=== PATIENT | female | born 1965 | race Caucasian/White ===

== ENCOUNTER 2017-08-02 18:32 | Emergency (ER) | payer OTHER ==
[~2017-08-02] VITALS: Ht 170.2 cm; Wt 83.9 kg
--- NOTE | 2017-08-02 20:35 | Diagnostic Imaging Report ---
EXAMINATION: FOREARM RIGHT 2 VIEW, WRIST COMPLETE RIGHT 08/02/2017 6:45 PM COMPARISON: None INDICATION: Fall, pain, edema DISCUSSION: 3 views of the right wrist (PA, lateral, and oblique) 2 views of the right forearm (AP and lateral) No fracture or dislocation. Tiny well-corticated ossicle at the base of the first metacarpal may be related to old trauma. Degenerative changes at the basilar joint of the thumb Soft tissues are unremarkable IMPRESSION: Tiny well-corticated ossicle at the base of the right thumb may be related to old trauma. Correlate with site of patient tenderness. Otherwise no acute radiographic abnormality of the right wrist or forearm. Benedicto Wang MD Signed by: Dr. Benedicto Wang M.D. on 08/02/2017 8:31 PM
== END 2017-08-02 20:54 | disposition home or self-care (01) ==
LOC: ER 18:32
DX: S63.521A Sprain of radiocarpal joint of right wrist, initial encounter (principal); W01.0XXA Fall on same level from slipping, tripping and stumbling without subsequent striking against object, initial encounter; Y93.01 Activity, walking, marching and hiking; Y92.830 Public park as the place of occurrence of the external cause; E03.9 Hypothyroidism, unspecified
CPT/HCPCS: 99283

== ENCOUNTER 2021-04-10 20:01 | Inpatient (IN) | payer OTHER ==
[~2021-04-10] VITALS: Ht 170.2 cm; Wt 99.8 kg
[2021-04-10] MEDS ORDERED: SODIUM CHLORIDE 0.9% 1000ML 1,000 ML IV STA (20:25)
[2021-04-10] MEDS ORDERED: CASIRIVIMAB/IMDEVIMAB 10 ML in SODIUM CHLORIDE 0.9% 100 ML IV ONE (20:30)
[2021-04-10 20:42] LABS: BASOPHILS % 0.3 % (0.0-1.0); EOSINOPHILS % 0.2 % (0.0-6.0); HEMATOCRIT 37.6 % (34.2-44.1); LYMPHOCYTES # (AUTO) 1.2 (1.0-3.2); LYMPHOCYTES % 10.1 % (18.0-39.1); MEAN CORPUSCULAR HEMOGLOBIN 26.5 pg (28-32); MEAN CORPUSCULAR HGB CONC 31.9 g/dL (31-35); MEAN CORPUSCULAR VOLUME 83.2 fL (81-99); MONOCYTES # (AUTO) 1.3 (0.2-0.8); MONOCYTES % 10.7 % (4.4-11.3); NEUTROPHILS # (AUTO) 8.7 (2.1-6.9); NEUTROPHILS % 73.4 % (38.7-80.0); PLATELET COUNT 697 x10e3/uL (140-360); RED BLOOD COUNT 4.52 x10e6/uL (3.6-5.1)
[2021-04-10] MEDS ORDERED: DEXAMETHASONE SOD PHOS 10 MG/1 ML VIAL IV STA (20:49)
[2021-04-10 20:59] LABS: ALANINE AMINOTRANSFERASE 65 IU/L (0-55); ALBUMIN 3.6 g/dL (3.5-5.0); ALKALINE PHOSPHATASE 78 IU/L (40-150); BLOOD UREA NITROGEN 9 mg/dL (7-26); BUN/CREATININE RATIO 13 (6-25); CALCIUM 8.4 mg/dL (8.4-10.2); CARBON DIOXIDE 23 mmol/L (22-29); CHLORIDE 102 mmol/L (98-107); CREATINE KINASE 22 IU/L (29-168); CREATININE, SERUM 0.72 mg/dL (0.57-1.11); EST GLOMERULAR FILTRATION RATE 83 ML/MIN (60-); GLUCOSE 103 mg/dL (74-118); SODIUM 139 mmol/L (136-145)
[2021-04-10 21:07] LABS: ALBUMIN/GLOBULIN RATIO 0.8 (0.8-2.0)
[2021-04-10] MEDS ORDERED: IOPAMIDOL 370 MG/ML 200 ML INFUS..BTL INJ ONE (21:24)
[2021-04-10] MEDS ORDERED: SODIUM CHLORIDE 0.9% 50ML 50 ML ONE (21:24)
[2021-04-11] MEDS ORDERED: ONDANSETRON HCL INJ 2MG/ML 2ML 2 MG/ML VIAL IV PRN
[2021-04-11] MEDS ORDERED: ASPIRIN 81 MG CHEW TAB PO ONE
[2021-04-11] MEDS ORDERED: MORPHINE SULFATE INJ 4 MG/ML INJ 1ML IV PRN
[2021-04-11 08:06] LABS: BASOPHILS % 0.4 % (0.0-1.0); HEMATOCRIT 37.6 % (34.2-44.1); HEMOGLOBIN 11.9 g/dL (12.0-16.0); LYMPHOCYTES # (AUTO) 1.2 (1.0-3.2); LYMPHOCYTES % 10.9 % (18.0-39.1); MEAN CORPUSCULAR HEMOGLOBIN 26.5 pg (28-32); MEAN CORPUSCULAR HGB CONC 31.6 g/dL (31-35); MEAN CORPUSCULAR VOLUME 83.7 fL (81-99); MONOCYTES # (AUTO) 0.6 (0.2-0.8); MONOCYTES % 5.4 % (4.4-11.3); NEUTROPHILS # (AUTO) 8.9 (2.1-6.9); NEUTROPHILS % 77.8 % (38.7-80.0); PLATELET COUNT 620 x10e3/uL (140-360); RED BLOOD COUNT 4.49 x10e6/uL (3.6-5.1); RED CELL DISTRIBUTION WIDTH 16.7 % (11.7-14.4)
[2021-04-11 08:42] LABS: ALBUMIN 3.4 g/dL (3.5-5.0); ANION GAP 17.3 mmol/L (8-16); CALCIUM 8.4 mg/dL (8.4-10.2); CREATININE, SERUM 0.65 mg/dL (0.57-1.11); POTASSIUM 4.3 mmol/L (3.5-5.1)
[2021-04-11 09:26] LABS: CREATINE KINASE MB 1.2 ng/mL (0-5.0)
[2021-04-11] MEDS: SODIUM CHLORIDE 0.9% 1000ML 1,000 ML IV SCH ×3 (09:47→18:21)
[2021-04-11] MEDS: CIPROFLOXACIN 400 MG/D5W 200ML 200 ML IV SCH ×2 (09:52→18:53)
[2021-04-11] MEDS: METRONIDAZOLE 500MG/NS 100ML 100 ML IV SCH ×2 (10:45→20:58)
[2021-04-11] MEDS ORDERED: ENOXAPARIN SOD INJ 40 MG/0.4 ML SYR SC SCH (11:00)
[2021-04-11] MEDS ORDERED: DEXAMETHASONE SOD PHOS 10 MG/1 ML VIAL IV SCH (12:00)
[2021-04-11] MEDS: REMDESIVIR 200MG/NS 100ML 200 MG in SODIUM CHLORIDE 0.9% 100 ML 100 ML IV ONE ×2 (14:54→18:21)
[2021-04-11 15:51] VITALS: BP 128/82
[2021-04-11 17:09] VITALS: BP 150/77
[2021-04-11] MEDS ORDERED: NEXIUM40 MG PO (17:16)
[2021-04-11 17:39] VITALS: BP 150/77
[2021-04-11] MEDS ORDERED: LEVOTHYROXINE100 MC1 IV (18:28)
[2021-04-11 19:58] VITALS: BP 131/78
[2021-04-11 20:59] VITALS: BP 131/78
[2021-04-12 00:46] VITALS: BP 121/65
[2021-04-12 04:05] VITALS: BP 130/78
[2021-04-12 05:09] LABS: BASOPHILS % 0.4 % (0.0-1.0); EOSINOPHILS # (AUTO) 0.1 (0.0-0.4); EOSINOPHILS % 0.4 % (0.0-6.0); HEMATOCRIT 38.2 % (34.2-44.1); HEMOGLOBIN 11.7 g/dL (12.0-16.0); LYMPHOCYTES # (AUTO) 2.1 (1.0-3.2); LYMPHOCYTES % 18.9 % (18.0-39.1); MEAN CORPUSCULAR HEMOGLOBIN 26.7 pg (28-32); MEAN CORPUSCULAR HGB CONC 30.6 g/dL (31-35); MONOCYTES # (AUTO) 1.1 (0.2-0.8); NEUTROPHILS # (AUTO) 7.5 (2.1-6.9); NEUTROPHILS % 66.3 % (38.7-80.0); PLATELET COUNT 662 x10e3/uL (140-360); RED BLOOD COUNT 4.39 x10e6/uL (3.6-5.1); RED CELL DISTRIBUTION WIDTH 17.1 % (11.7-14.4)
[2021-04-12] MEDS: SODIUM CHLORIDE 0.9% 1000ML 1,000 ML IV SCH ×2 (06:28→07:44)
[2021-04-12] MEDS: METRONIDAZOLE 500MG/NS 100ML 100 ML IV SCH (07:44)
[2021-04-12 09:11] VITALS: BP 155/80
[2021-04-12 09:15] VITALS: BP 155/80
[2021-04-12] MEDS ORDERED: ACETAMINOPHEN 325 MG TAB PO PRN (10:30)
[2021-04-12] MEDS ORDERED: FLAGYL500 MG PO (12:46)
[2021-04-12] MEDS ORDERED: LEVOFLOXACIN250 MG PO (12:46)
[2021-04-12] MEDS ORDERED: DECADRON4 M1 PO (12:48)
[2021-04-12 14:00] VITALS: BP 142/73
[2021-04-12] MEDS ORDERED: REMDESIVIR 100MG/NS 100ML 100 MG in SODIUM CHLORIDE 0.9% 100 ML 100 ML IV SCH (14:00)
== END 2021-04-12 18:10 | disposition home or self-care (01) | DRG 177 ==
LOC: ER 20:27 → ERHOLD 04-11 00:43 → IMCU 04-11 13:28
PROVIDERS: ADMIT Internal Medicine; ATTEND Internal Medicine
PROC: XW033H6 Introduction of Other New Technology Monoclonal Antibody into Peripheral Vein, Percutaneous Approach, New Technology Group 6 (ICD-10-PCS; principal; 2021-04-10)
PROC: 3E0333Z Introduction of Anti-inflammatory into Peripheral Vein, Percutaneous Approach (ICD-10-PCS; 2021-04-10)
PROC: XW033E5 Introduction of Remdesivir Anti-infective into Peripheral Vein, Percutaneous Approach, New Technology Group 5 (ICD-10-PCS; 2021-04-11)
DX: U07.1 COVID-19 (principal); K57.33 Diverticulitis of large intestine without perforation or abscess with bleeding; J12.82 Pneumonia due to coronavirus disease 2019; J96.01 Acute respiratory failure with hypoxia; Z91.018 Allergy to other foods; E66.01 Morbid (severe) obesity due to excess calories; R09.02 Hypoxemia; K21.9 Gastro-esophageal reflux disease without esophagitis; D64.9 Anemia, unspecified
CPT/HCPCS: 36415; 71260; 74177; 80053; 82550; 82553; 83880; 84484; 85025; 93005; 99284; J0456; J1100; J1650; J7030; J7050; Q9967; U0002

== ENCOUNTER 2022-09-18 07:30 | Emergency (ER) | payer OTHER ==
[~2022-09-18] VITALS: Ht 170.2 cm; Wt 99.8 kg
[~2022-09-18 07:30] MED LIST: DECADRON4 M1 PO; FLAGYL500 MG PO; LEVOFLOXACIN250 MG PO; LEVOTHYROXINE100 MC1 IV; NEXIUM40 MG PO
[2022-09-18] MEDS ORDERED: KETOROLAC TROMETHAMINE 30 MG/ML VIAL IM STA (07:47)
[2022-09-18] MEDS ORDERED: DEXAMETHASONE 4 MG TAB PO STA (07:47)
[2022-09-18] MEDS ORDERED: CYCLOBENZAPRINE5 MG PO (07:49)
== END 2022-09-18 08:11 | disposition home or self-care (01) ==
LOC: ER 07:35
DX: M54.6 Pain in thoracic spine (principal); K21.9 Gastro-esophageal reflux disease without esophagitis
CPT/HCPCS: 93005; 99282; J1885; J8540